=== PATIENT | female | born 1990 | race Caucasian/White ===

== ENCOUNTER 2016-12-30 11:57 | Emergency (ER) | payer OTHER ==
[~2016-12-30] VITALS: Ht 162.6 cm; Wt 64.0 kg
[2016-12-30 11:57] VITALS: BP 124/62; PULSE 87; RESP 16; TEMP 98.4; O2SAT 97
[~2016-12-30 11:57] MED LIST: CEPALOZ SUCK-ON; CEPH500T PO; IBUP-232 PO; PRED50TA PO
[2016-12-30] MEDS ORDERED: IBUPROFEN 600 MG TAB PO ONE (12:15)
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
[2016-12-30] MEDS ORDERED: MOTR200T4 PO (14:37)
[2016-12-30] MEDS ORDERED: CYCL1TAB29 PO (14:40)
== END 2016-12-30 15:08 | disposition home or self-care (01) ==
LOC: NEPD 11:57
DX: M79.652 Pain in left thigh (principal); S50.12XA Contusion of left forearm, initial encounter; S70.12XA Contusion of left thigh, initial encounter; M54.2 Cervicalgia; V28.0XXA Motorcycle driver injured in noncollision transport accident in nontraffic accident, initial encounter; Y93.I9 Activity, other involving external motion; Y92.410 Unspecified street and highway as the place of occurrence of the external cause
CPT/HCPCS: 70450; 72125; 84703

== ENCOUNTER → 2017-07-04 | Outpatient (CLI) | payer OTHER ==
[~2017-07-04] MED LIST changes: +AMOX500T PO; -CEPALOZ SUCK-ON; -CEPH500T PO; +CYCL10TA PO; +ETON1IMP I-DERMAL; -IBUP-232 PO; +MOTR200T4 PO; -PRED50TA PO
[2017-07-04 10:06] LABS: HEMATOCRIT 40.1 % (35.0-46.0); MEAN CELL VOLUME 92.3 FL (80.0-100.0); MEAN CORPUSCULAR HGB CONC 33.6 % (32.0-36.0); PLATELET COUNT 220 TH/MM3 (150-450); RED BLOOD COUNT 4.35 MIL/MM3 (4.00-5.30); RED CELL DISTRIBUTION WIDTH 12.5 % (11.6-17.2); REVIEW FLAG FINAL; WHITE BLOOD COUNT 7.9 TH/MM3 (4.0-11.0)
== END ==
LOC: CPRE 08:53
PROVIDERS: ATTEND Specialist
DX: Z01.812 Encounter for preprocedural laboratory examination (principal); J35.01 Chronic tonsillitis
CPT/HCPCS: 36415; 85027

== ENCOUNTER → 2017-07-05 | Day surgery (SDC) | payer OTHER ==
[~2017-07-05] VITALS: Ht 162.6 cm; Wt 69.2 kg
[~2017-07-05] MED LIST changes: +*morphine SULFATE 8 MG/ML PERIprocedure ONLY ONE; +ACETAMINOPHEN 1000 MG/100 ML 100 ML IV ONE; +ACETAMINOPHEN/HYDROcodone 325 MG/7.5 MG TAB PO PRN; +APREPITANT 40 MG CAP ONE; +CHLORHEXIDINE GLUCONATE 2 % 1 PACK (2 CLOTHS) TOPICAL PRN; -CYCL10TA PO; +DEXAMETHASONE SOD PHOS 4 MG/ML VIAL ONE; +DO NOT ADM ANY ANTICOAGULANT DRUGS PRN; +INSULIN HUMAN REGULAR 1,000 UNITS/10 ML VIAL SQ PRN; +LACTATED RINGER'S 1000 ML IV PRN; +METOPROLOL TARTRATE 25 MG TAB PO PRN; +MORPHINE SULFATE 2 MG/ML INJ IV PUSH PRN; -MOTR200T4 PO; +ONDANSETRON HCL 4 MG/2 ML VIAL IV PUSH PRN; +ONDANSETRON HCL 4 MG/2 ML VIAL ONE; +POVIDONE IODINE 5% (ANTISEPSIS KIT) 4 APPLICATIONS EACH NARE PRN; +SODIUM CHLORID 0.9% 500 ML IV PRN
--- NOTE | 2017-07-05 08:43 | MH ---
cc: VIVEK CASTRO DATE OF ADMISSION 07/05/2017 ADMITTING DIAGNOSIS A 26-year-old with chronic tonsillitis for tonsillectomy. PAST MEDICAL HISTORY Unremarkable. PAST SURGICAL HISTORY Unremarkable. REVIEW OF SYSTEMS, FAMILY HISTORY AND SOCIAL HISTORY Unremarkable. PHYSICAL EXAMINATION GENERAL: A well-appearing patient in no acute distress is noted. HEENT: Exam reveals significant bilateral follicular tonsillitis with tonsillar hypertrophy. NECK: Soft and supple. No masses noted. LUNGS: Clear. HEART: Regular rate and rhythm. ABDOMEN: Soft and nontender. EXTREMITIES: Without clubbing, cyanosis or edema. NEUROLOGIC: Alert, oriented, nonfocal neurologic exam. IMPRESSION/PLAN A patient with chronic tonsillitis for tonsillectomy. The patient was instructed as to the method of surgery and possible complications and these include anesthetic complications such as cardiac difficulty, pulmonary difficulty, stroke, coma or even , surgical complications such as bleeding, infection, risk of transfusion, reoperation. The patient appeared to agree, accept and understand the above-mentioned risks and benefits. In addition, no guarantees or warranties regarding outcome of surgery were given. We will therefore proceed with surgery. MD NORBERTO Krishna/ELVIA /5:58 PM /8:42 AM
[2017-07-05 09:30] VITALS: BP 139/78; PULSE 83; RESP 18; TEMP 95.2; O2SAT 97
--- NOTE | 2017-07-12 09:42 | MP ---
cc: VIVEK CASTRO DATE OF SURGERY 07/05/2017 PREOPERATIVE DIAGNOSIS Chronic tonsillitis. PROCEDURE Tonsillectomy. ANESTHESIA General anesthesia. ESTIMATED BLOOD LOSS Minimal. COMPLICATIONS No complications. OPERATING SURGEON Dr. Castro OPERATION FOLLOWS Prepped and draped in the usual fashion. Summer-Ascencion mouth gag inserted per orally for significant retraction. A curved Allis clamp was used to medialized initially the left tonsil. An anterior tonsillar pillar incision was made with the electrocautery and the tonsil removed in the plane between the capsule and the underlying muscle. Adequate hemostasis obtained with suction electrocautery. In similar fashion on the opposite side, anterior tonsillar pillar incision was made with electrocautery, the tonsil removed in the plane between the capsule and the underlying muscle. Adequate hemostasis was obtained with suction electrocautery. Summer-Ascencion was released, reopened. No active bleeding noted. Summer-Ascencion was removed. The patient tolerated the procedure well. MD NORBERTO Krishna/CED /8:17 AM /9:38 AM
== END | disposition home or self-care (01) ==
LOC: HSDC 05:57
PROVIDERS: ATTEND Specialist
DX: J35.01 Chronic tonsillitis (principal)
CPT/HCPCS: 00170; 42826; 88304; J0131; J1100; J2270; J2405; J7120; J8501